=== PATIENT | male | born 1960 | race Caucasian/White ===

== ENCOUNTER → 2018-12-16 | Day surgery (SDC) | payer BC ==
[~2018-12-16] MED LIST: Lactated Ringers 1,000 ML IV SCH; Propofol 200 MG/20 ML SDV IV ONE
--- NOTE | 2018-12-16 12:02 | OR ---
DATE OF OPERATION: 12/16/2018 PREOPERATIVE DIAGNOSIS: CHRONIC GASTROESOPHAGEAL REFLUX DISEASE. POSTOPERATIVE DIAGNOSIS: CHRONIC GASTROESOPHAGEAL REFLUX DISEASE. SURGEON: Juan Burnett MD PROCEDURE: FULL-LENGTH EGD WITH ANTRAL BIOPSY X2, ROEL. ANESTHESIA: PERITONEAL DIALYSIS REGISTERED NURSE. COMPLICATIONS: None. SPECIMEN: 1. Antral biopsy x2. 2. ROEL. FINDINGS: 1. Full-length EGD. 2. Antral gastritis, mild and chronic appearing. 3. No spontaneous reflux seen. 4. No hiatal hernia, stricturing, ulceration, or Robledo's changes. RECOMMENDATIONS: Continue a 6-week course of proton pump therapy and followup medically at that time. INDICATIONS: The patient presented with complaints of dysphagia and reflux, felt like at times food was getting stuck. We elected to proceed with EGD. DESCRIPTION OF PROCEDURE: The patient was prepped and draped, placed in the left lateral decubitus position. A lubricated Olympus gastroscope was inserted over a bit, advanced to the cricopharyngeus area, and easily intubated into the esophagus. The esophageal lining was benign in its entire course. The Z-line was crisp around 39 cm. No signs of any spontaneous reflux seen. There was no hiatal hernia. No distal esophagitis, stricturing, ulceration, or Robledo's changes. The scope was advanced into the stomach, through the pylorus, into the second portion of the duodenum. This and the duodenal bulb were benign. The scope was brought back into the stomach and retroflexed. The upper fundus and cardia were unremarkable. Upon straightening, the rest of the gastric lining of the fundus was unremarkable. In the antrum, the patient had some chronic gastritis changes. No ulceration or erosion seen. Two biopsies were taken along with a CLOtest. Air was then suctioned and the scope removed without complication. MALLY/STEFANIA /[id number]
== END ==
LOC: CC.SDS 09:06
PROVIDERS: ATTEND Family Medicine
DX: K29.50 Unspecified chronic gastritis without bleeding (principal); K21.9 Gastro-esophageal reflux disease without esophagitis; Z79.899 Other long term (current) drug therapy
CPT/HCPCS: 87081; J2704; J7120

== ENCOUNTER → 2020-06-21 | Day surgery (SDC) | payer BC ==
[~2020-06-21] MED LIST changes: +Ketamine 200 MG/20 ML MDV IV ONE; -Lactated Ringers 1,000 ML IV SCH; +fentaNYL 100 MCG/2 ML SDV IV ONE
[2020-06-21] MEDS: Lactated Ringers 1,000 ML IV SCH (11:13)
--- NOTE | 2020-06-24 09:52 | OR ---
DATE OF OPERATION: 06/21/2020 PREOPERATIVE DIAGNOSIS: SCREENING COLONOSCOPY. POSTOPERATIVE DIAGNOSIS: SCREENING COLONOSCOPY. SURGEON: Juan Burnett MD PROCEDURE: FULL-LENGTH COLONOSCOPY WITH FORCEPS POLYP REMOVAL X2. ANESTHESIA: MAC. COMPLICATIONS: None. SPECIMEN: Two small sessile polyps, likely hyperplastic, see report. FINDINGS: 1. Full-length colonoscopy. 2. Hyperplastic polyps x2. RECOMMENDATIONS: Followup colonoscopy in 5 years pending path report. INDICATIONS: The patient was in for routine physical. He is due for a routine screening colonoscopy as it has been 10 years since his last exam. DESCRIPTION OF PROCEDURE: The patient was prepped and draped, placed in the left lateral decubitus position. A lubricated Olympus colonoscope was inserted and with ease advanced to the cecum. Direct visualization of the ileocecal valve and appendiceal orifice was accomplished. The bowel prep was fine. Upon withdrawal of the scope, the cecum, ascending, and transverse colon were benign. At the splenic flexure, the patient had a small hyperplastic polyp removed in its entirety with a forceps biopsy x1. Second polyp was noted in the distal descending colon, also removed with a forceps biopsy x1. The rest of the sigmoid and rectosigmoid junction had no other polyps, masses, ulceration, or bleeding sites. No vascular abnormalities or signs of colitis. The rectal vault was benign. Retroflexion of the scope in the rectum showed no anal lesions. Air was suctioned and the scope was removed without complication. MALLY/STEFANIA /[id number]
== END ==
LOC: CC.SDS 10:55
PROVIDERS: ATTEND Family Medicine
DX: Z12.11 Encounter for screening for malignant neoplasm of colon (principal); D12.3 Benign neoplasm of transverse colon; D12.4 Benign neoplasm of descending colon; E78.00 Pure hypercholesterolemia, unspecified; K21.9 Gastro-esophageal reflux disease without esophagitis; N40.0 Benign prostatic hyperplasia without lower urinary tract symptoms; Z79.899 Other long term (current) drug therapy
CPT/HCPCS: 00812; J2704; J3010; J7120

== ENCOUNTER 2025-08-17 16:34 | Emergency (ER) | payer MEDICARE, BC ==
[2025-08-17 17:16] VITALS: PULSE 52
[2025-08-17] MEDS: Bacitracin Oint 1 GM U/D Packet TOP ONE (17:32)
[2025-08-17] MEDS: Diphtheria,Pertussis(Acell),Tetanus Vaccine 0.5 ML Syringe IM ONE (17:32)
[2025-08-17] MEDS: Diphtheria/Tetanus Toxoids,Adult (Td) 0.5 ML Syringe IM ONE (17:34)
[2025-08-17] MEDS ORDERED: Take Home: Cephalexin 250 MG Cap, 4 Cap Pack PO ONE (17:41)
[2025-08-17 18:24] VITALS: BP 152/64
== END 2025-08-17 18:17 | disposition home or self-care (01) ==
LOC: CC.ED 16:34
DX: S61.212A Laceration without foreign body of right middle finger without damage to nail, initial encounter (principal); E78.00 Pure hypercholesterolemia, unspecified; Z79.899 Other long term (current) drug therapy; W26.0XXA Contact with knife, initial encounter; Y93.89 Activity, other specified
CPT/HCPCS: 12002; 73140-F7; 90471; 90715; 99283-25; J2003